=== PATIENT | female | born 1980 | race Caucasian/White ===

== ENCOUNTER 2016-12-11 03:18 | Emergency (ER) | payer BC, OTHER ==
[~2016-12-11 03:18] MED LIST changes: -PERCOCET 325 MG1 TA2 PO; -ZOFRAN ODT8 M1 PO
[2016-12-11] MEDS ORDERED: ZOFRAN ODT8 M1 PO (06:09)
[2016-12-11] MEDS ORDERED: PERCOCET 325 MG1 TA2 PO (06:09)
[2016-12-11 06:19] VITALS: BP 145/84
== END 2016-12-11 06:23 | disposition home or self-care (01) ==
LOC: ED 03:18
DX: R10.9 Unspecified abdominal pain (principal); R11.0 Nausea; Z87.442 Personal history of urinary calculi; N13.30 Unspecified hydronephrosis
CPT/HCPCS: J1885; J2405; J7030

== ENCOUNTER → 2016-12-11 | Outpatient (CLI) | payer BC, OTHER ==
[~2016-12-11] MED LIST: ALDACTONE50 MG PO; ALLERGY RELIEF10 M1 PO; EXCEDRIN1 TAB PO; IMPLANON68 MG ID; KETOROLAC TROME10 MG PO; KETOROLAC10 MG PO; NORCO 325 MG-51 TA1 PO; NORCO 325 MG-51 TAB PO; OXYCODONE HCL10 M1 PO; PERCOCET 325 MG1 TA2 PO; PROZAC20 MG PO; PROZAC40 MG PO; REGLAN10 M2 PO; ZOFRAN ODT8 M1 PO; ZOFRAN4 M2 PO
== END ==
LOC: RAD 13:53
DX: R10.9 Unspecified abdominal pain (principal); Z87.442 Personal history of urinary calculi; N13.30 Unspecified hydronephrosis

== ENCOUNTER 2019-10-02 16:34 | Emergency (ER) | payer BC ==
[~2019-10-02] VITALS: Ht 165.1 cm; Wt 107.7 kg
[~2019-10-02 16:34] MED LIST changes: +PERCOCET 325 MG1 TA2 PO; +ZOFRAN ODT8 M1 PO
[2019-10-02] MEDS ORDERED: PROZAC40 M1 PO (16:49)
[2019-10-02] MEDS ORDERED: LORAZEPAM0.5 M1 PO (16:49)
[2019-10-02] MEDS ORDERED: NEXIUM 40MG40 MG PO (16:50)
[2019-10-02 18:00] LABS: BASO # 0.1 (0.02-0.10); EOS # 0.2 (0.04-0.40); EOS % 1.7 % (1.0-5.0); HEMATOCRIT 39.9 % (37.0-47.0); HEMOGLOBIN 13.2 g/dL (12.5-16.0); LYMPH# 2.9 (1.50-4.00); MEAN CELL VOLUME 85 fl (78-100); MEAN CORPUSCULAR HEMOGLOBIN 28 pg (27-31); MEAN CORPUSCULAR HGB CONC 33 g/dL (33-37); MEAN PLATELET VOLUME 9.6 fl (7.4-10.4); NEU # 6.5 (1.40-6.50); PLATELET COUNT 466 K/mm3 (130-400); RED CELL DISTRIBUTION WIDTH 15.4 % (11.5-14.5); WHITE BLOOD COUNT 10.6 K/mm3 (4.8-10.8)
[2019-10-02 18:05] LABS: ALBUMIN 4.3 g/dL (3.5-5.0); POTASSIUM 3.9 mmol/L (3.5-5.1)
[2019-10-02 18:06] LABS: PH-URINE 7.5 (5.0 - 8.0); URINE APPEARANCE CLEAR; URINE BILIRUBIN NEGATIVE (NEGATIVE); URINE BLOOD NEGATIVE (NEGATIVE); URINE COLOR YELLOW; URINE GLUCOSE NEGATIVE (NEGATIVE); URINE KETONE NEGATIVE (NEGATIVE); URINE LEUKOCYTE ESTERASE TRACE (NEGATIVE); URINE NITRATE NEGATIVE (NEGATIVE); URINE PROTEIN(semi-quant) NEGATIVE (NEGATIVE); URINE UROBILINOGEN NORMAL (NORMAL); URINE WBC 0-1 /hpf (0-3)
[2019-10-02 18:08] LABS: TOTAL PROTEIN 7.7 g/dL (6.4-8.3)
[2019-10-02 18:09] LABS: TOTAL BILIRUBIN 0.2 mg/dL (0.2-1.2)
[2019-10-02] MEDS ORDERED: PERCOCET 325 MG1 TA2 PO (20:45)
[2019-10-02 21:01] VITALS: BP 151/87
== END 2019-10-02 21:01 | disposition home or self-care (01) ==
LOC: ED 16:34
PROVIDERS: Family Medicine
DX: N13.0 Hydronephrosis with ureteropelvic junction obstruction (principal); E66.01 Morbid (severe) obesity due to excess calories; Z68.39 Body mass index [BMI] 39.0-39.9, adult; Z98.51 Tubal ligation status
CPT/HCPCS: J1885; J3010; J7030

== ENCOUNTER 2020-06-01 22:47 | Emergency (ER) | payer SELFPAY ==
[~2020-06-01 22:47] MED LIST changes: +LORAZEPAM0.5 M1 PO; +NEXIUM 40MG40 MG PO; +PROZAC40 M1 PO
[2020-06-01 23:29] LABS: BASO # 0.1 (0.02-0.10); EOS # 0.4 (0.04-0.40); EOS % 3.2 % (1.0-5.0); HEMATOCRIT 38.8 % (37.0-47.0); HEMOGLOBIN 12.3 g/dL (12.5-16.0); LYMPH# 4.3 (1.50-4.00); MEAN CELL VOLUME 83 fl (78-100); MEAN CORPUSCULAR HEMOGLOBIN 26 pg (27-31); MEAN CORPUSCULAR HGB CONC 32 g/dL (33-37); MONO # 1.2 (0.20-0.80); NEU # 5.6 (1.40-6.50); PLATELET COUNT 381 K/mm3 (130-400); RED BLOOD COUNT 4.67 M/mm3 (4.10-5.30); RED CELL DISTRIBUTION WIDTH 16.2 % (11.5-14.5); WHITE BLOOD COUNT 11.6 K/mm3 (4.8-10.8)
[2020-06-01 23:38] LABS: ALBUMIN 4.1 g/dL (3.5-5.0); POTASSIUM 3.6 mmol/L (3.5-5.1)
[2020-06-01 23:39] LABS: CALCIUM 8.6 mg/dL (8.3-10.5)
[2020-06-01 23:41] LABS: TOTAL PROTEIN 6.9 g/dL (6.4-8.3)
[2020-06-01 23:42] LABS: TOTAL BILIRUBIN 0.2 mg/dL (0.2-1.2)
[2020-06-01 23:42] LABS: PH-URINE 7.5 (5.0 - 8.0); URINE APPEARANCE HAZY; URINE BILIRUBIN NEGATIVE (NEGATIVE); URINE BLOOD NEGATIVE (NEGATIVE); URINE COLOR YELLOW; URINE GLUCOSE NEGATIVE (NEGATIVE); URINE KETONE NEGATIVE (NEGATIVE); URINE LEUKOCYTE ESTERASE TRACE (NEGATIVE); URINE NITRATE NEGATIVE (NEGATIVE); URINE PROTEIN(semi-quant) NEGATIVE (NEGATIVE); URINE UROBILINOGEN NORMAL (NORMAL); URINE WBC 0-1 /hpf (0-3)
[2020-06-02 03:25] VITALS: BP 159/94
== END 2020-06-02 03:25 | disposition short-term general hospital (02) ==
LOC: ED 22:47
PROVIDERS: Nurse Practitioner Family
DX: R10.12 Left upper quadrant pain (principal); R10.32 Left lower quadrant pain; D64.9 Anemia, unspecified; N13.6 Pyonephrosis; N20.0 Calculus of kidney; R11.0 Nausea; Z79.1 Long term (current) use of non-steroidal anti-inflammatories (NSAID); Z88.6 Allergy status to analgesic agent; F41.9 Anxiety disorder, unspecified; F32.9 Major depressive disorder, single episode, unspecified
CPT/HCPCS: J1170; J1885; J2405; J3010; J7030

== ENCOUNTER 2020-08-09 20:37 | Emergency (ER) | payer SELFPAY ==
[~2020-08-09] VITALS: Ht 165.1 cm; Wt 113.6 kg
[2020-08-09 21:23] LABS: PH-URINE 7.5 (5.0 - 8.0); URINE APPEARANCE HAZY; URINE BILIRUBIN NEGATIVE (NEGATIVE); URINE BLOOD NEGATIVE (NEGATIVE); URINE COLOR YELLOW; URINE GLUCOSE NEGATIVE (NEGATIVE); URINE KETONE NEGATIVE (NEGATIVE); URINE LEUKOCYTE ESTERASE NEGATIVE (NEGATIVE); URINE NITRATE NEGATIVE (NEGATIVE); URINE PROTEIN(semi-quant) NEGATIVE (NEGATIVE); URINE UROBILINOGEN NORMAL (NORMAL); URINE WBC 0-1 /hpf (0-3)
[2020-08-09 21:53] LABS: BASO # 0.1 (0.02-0.10); EOS # 0.3 (0.04-0.40); EOS % 2.8 % (1.0-5.0); HEMATOCRIT 35.5 % (37.0-47.0); HEMOGLOBIN 11.3 g/dL (12.5-16.0); LYMPH# 3.7 (1.50-4.00); MEAN CELL VOLUME 82 fl (78-100); MEAN CORPUSCULAR HEMOGLOBIN 26 pg (27-31); MEAN CORPUSCULAR HGB CONC 32 g/dL (33-37); MEAN PLATELET VOLUME 9.3 fl (7.4-10.4); MONO # 1.1 (0.20-0.80); NEU # 5.4 (1.40-6.50); PLATELET COUNT 385 K/mm3 (130-400); RED BLOOD COUNT 4.31 M/mm3 (4.10-5.30); RED CELL DISTRIBUTION WIDTH 15.7 % (11.5-14.5); WHITE BLOOD COUNT 10.7 K/mm3 (4.8-10.8)
[2020-08-09 22:04] LABS: ALBUMIN 3.9 g/dL (3.5-5.0); POTASSIUM 3.8 mmol/L (3.5-5.1)
[2020-08-09 22:06] LABS: CALCIUM 8.9 mg/dL (8.3-10.5)
[2020-08-09 22:07] LABS: TOTAL PROTEIN 6.7 g/dL (6.4-8.3)
[2020-08-09 22:09] LABS: TOTAL BILIRUBIN 0.2 mg/dL (0.2-1.2)
[2020-08-10 00:49] VITALS: BP 156/96
== END 2020-08-10 00:49 | disposition home or self-care (01) ==
LOC: ED 20:37
PROVIDERS: Physician Assistant
DX: N13.5 Crossing vessel and stricture of ureter without hydronephrosis (principal); F41.9 Anxiety disorder, unspecified; F17.290 Nicotine dependence, other tobacco product, uncomplicated; Z32.02 Encounter for pregnancy test, result negative; Z98.84 Bariatric surgery status; Z88.0 Allergy status to penicillin; Z88.6 Allergy status to analgesic agent
CPT/HCPCS: J1170; J1885; J3010; Q9967

== ENCOUNTER 2020-08-26 19:58 | Emergency (ER) | payer SELFPAY ==
[~2020-08-26] VITALS: Ht 165.1 cm; Wt 114.5 kg
[2020-08-26] MEDS ORDERED: NORCO 325 MG-51 TA1 PO (20:11)
[2020-08-26 21:04] LABS: BASO # 0.1 (0.02-0.10); EOS # 0.4 (0.04-0.40); EOS % 3.4 % (1.0-5.0); HEMATOCRIT 37.5 % (37.0-47.0); HEMOGLOBIN 11.8 g/dL (12.5-16.0); LYMPH# 3.1 (1.50-4.00); MEAN CELL VOLUME 83 fl (78-100); MEAN CORPUSCULAR HEMOGLOBIN 26 pg (27-31); MEAN CORPUSCULAR HGB CONC 32 g/dL (33-37); MEAN PLATELET VOLUME 9.3 fl (7.4-10.4); NEU # 7.2 (1.40-6.50); PLATELET COUNT 411 K/mm3 (130-400); RED BLOOD COUNT 4.54 M/mm3 (4.10-5.30); RED CELL DISTRIBUTION WIDTH 15.9 % (11.5-14.5); WHITE BLOOD COUNT 11.8 K/mm3 (4.8-10.8)
[2020-08-26 21:12] LABS: POTASSIUM 3.8 mmol/L (3.5-5.1)
[2020-08-26 21:13] LABS: CALCIUM 8.9 mg/dL (8.3-10.5)
[2020-08-26 21:15] LABS: URINE APPEARANCE CLEAR; URINE BILIRUBIN NEGATIVE (NEGATIVE); URINE COLOR YELLOW; URINE GLUCOSE NEGATIVE (NEGATIVE); URINE KETONE NEGATIVE (NEGATIVE); URINE NITRATE NEGATIVE (NEGATIVE); URINE PROTEIN(semi-quant) 1+ mg/dL (NEGATIVE); URINE UROBILINOGEN NORMAL (NORMAL)
[2020-08-26 21:16] LABS: URINE BLOOD TRACE (NEGATIVE); URINE LEUKOCYTE ESTERASE TRACE (NEGATIVE); URINE MUCUS PRESENT (NOT PRESENT)
[2020-08-26 21:16] LABS: TOTAL BILIRUBIN 0.3 mg/dL (0.2-1.2)
[2020-08-26] MEDS ORDERED: NEXIUM20 MG PO (21:27)
[2020-08-26 22:01] VITALS: BP 164/96
== END 2020-08-26 22:01 | disposition home or self-care (01) ==
LOC: ED 19:58
PROVIDERS: Family Medicine
DX: R10.9 Unspecified abdominal pain (principal); F41.9 Anxiety disorder, unspecified; F32.9 Major depressive disorder, single episode, unspecified; F17.290 Nicotine dependence, other tobacco product, uncomplicated; Z98.84 Bariatric surgery status
CPT/HCPCS: J2060; J3010

== ENCOUNTER 2021-11-17 12:52 | Emergency (ER) | payer OTHER ==
[~2021-11-17] VITALS: Ht 165.1 cm; Wt 115.5 kg
[~2021-11-17 12:52] MED LIST changes: +NEXIUM20 MG PO
[2021-11-17 13:53] VITALS: BP 160/100
== END 2021-11-17 14:04 | disposition home or self-care (01) ==
LOC: ED 12:52
DX: S61.412A Laceration without foreign body of left hand, initial encounter (principal); E66.9 Obesity, unspecified; Z23 Encounter for immunization; Z68.41 Body mass index [BMI] 40.0-44.9, adult; W26.9XXA Contact with unspecified sharp object(s), initial encounter
CPT/HCPCS: 90715

== ENCOUNTER 2022-04-10 20:55 | Emergency (ER) | payer SELFPAY ==
[2022-04-10] MEDS ORDERED: ZYRTEC ALLERGY10 MG PO (21:09)
[2022-04-10 22:04] LABS: BASO # 0.09 K/mm3 (0.02-0.10); EOS # 0.31 K/mm3 (0.04-0.40); EOS % 2.5 % (1.0-5.0); HEMATOCRIT 33.6 % (37.0-47.0); HEMOGLOBIN 10.1 g/dL (12.5-16.0); LYMPH# 2.91 K/mm3 (1.50-4.00); MEAN CELL VOLUME 77 fl (78-100); MEAN CORPUSCULAR HEMOGLOBIN 23 pg (27-31); MEAN CORPUSCULAR HGB CONC 30 g/dL (33-37); MEAN PLATELET VOLUME 9.4 fl (7.4-10.4); MONO # 1.18 K/mm3 (0.20-0.80); NEU # 8.01 K/mm3 (1.40-6.50); PLATELET COUNT 435 K/mm3 (130-400); RED BLOOD COUNT 4.39 M/mm3 (4.10-5.30); WHITE BLOOD COUNT 12.5 K/mm3 (4.8-10.8)
[2022-04-10 22:08] LABS: ALBUMIN 4.1 g/dL (3.5-5.0)
[2022-04-10 22:09] LABS: POTASSIUM 3.8 mmol/L (3.5-5.1)
[2022-04-10 22:10] LABS: CALCIUM 9.1 mg/dL (8.3-10.5)
[2022-04-10 22:13] LABS: TOTAL BILIRUBIN 0.3 mg/dL (0.2-1.2)
[2022-04-10 22:16] LABS: URINE APPEARANCE CLEAR; URINE BILIRUBIN NEGATIVE (NEGATIVE); URINE BLOOD NEGATIVE (NEGATIVE); URINE COLOR LIGHT YELLOW; URINE GLUCOSE NEGATIVE (NEGATIVE); URINE KETONE NEGATIVE (NEGATIVE); URINE LEUKOCYTE ESTERASE NEGATIVE (NEGATIVE); URINE NITRATE NEGATIVE (NEGATIVE); URINE PROTEIN(semi-quant) NEGATIVE (NEGATIVE); URINE UROBILINOGEN NORMAL (NORMAL); URINE WBC 0-1 /hpf (0-3)
[2022-04-10] MEDS ORDERED: NORCO 325 MG-51 TA1 PO (23:35)
[2022-04-10] MEDS ORDERED: CIPRO500 M1 PO (23:35)
[2022-04-10] MEDS ORDERED: METRONIDAZOLE500 M1 PO (23:35)
[2022-04-10 23:46] VITALS: BP 152/78
== END 2022-04-10 23:47 | disposition home or self-care (01) ==
LOC: ED 20:55
PROVIDERS: Physician Assistant
DX: K57.32 Diverticulitis of large intestine without perforation or abscess without bleeding (principal); D25.9 Leiomyoma of uterus, unspecified; F17.290 Nicotine dependence, other tobacco product, uncomplicated; Z87.442 Personal history of urinary calculi; Z88.0 Allergy status to penicillin; Z28.310 Unvaccinated for COVID-19
CPT/HCPCS: J1885; J3010; Q9967

== ENCOUNTER 2022-05-17 11:05 | Emergency (ER) | payer SELFPAY ==
[~2022-05-17 11:05] MED LIST changes: +CIPRO500 M1 PO; +METRONIDAZOLE500 M1 PO; +ZYRTEC ALLERGY10 MG PO
[2022-05-17] MEDS ORDERED: NORCO 10-325 T1 EACH PO (11:31)
[2022-05-17 12:02] VITALS: BP 179/90
== END 2022-05-17 12:01 | disposition home or self-care (01) ==
LOC: ED 11:05
DX: K02.9 Dental caries, unspecified (principal); Z88.5 Allergy status to narcotic agent; Z28.310 Unvaccinated for COVID-19
CPT/HCPCS: J1885

== ENCOUNTER 2023-12-07 17:07 | Outpatient (RCR) | payer SELFPAY ==
[2023-11-26 16:05] VITALS: BP 144/89
[2023-11-30 16:36] VITALS: BP 145/94
--- NOTE | 2023-11-30 16:38 | NUR ---
Jaylyn MORRISON assessed serous draining from wound sight on inner arm, PA stated normal drainage and to report any worsening of symptoms, covered with steri stip
[~2023-12-07] VITALS: Ht 167.6 cm; Wt 120.0 kg
[~2023-12-07 17:07] MED LIST changes: +AMOXICILLIN AND1 TA2 PO; +CLEOCIN HCL300 MG PO; +NORCO 10-325 T1 EACH PO
[2023-12-07 17:17] VITALS: BP 155/93
== END 2023-12-09 10:44 | disposition home or self-care (01) ==
LOC: AMSURD 17:07
DX: S41.159A Open bite of unspecified upper arm, initial encounter (principal); W54.0XXA Bitten by dog, initial encounter

== ENCOUNTER 2024-02-06 22:37 | Emergency (ER) | payer SELFPAY ==
[~2024-02-06 22:37] MED LIST changes: +hydrALAZINE 20 MG/ML 1 ML VIAL IV ONE
[2024-03-11 16:21] LABS: URINE WBC 0 /hpf (0-3)
[2024-03-12 05:17] LABS: ALBUMIN 4.3 g/dL (3.5-5.0); ALT/SGPT 18 U/L (0-55); AST-SGOT 23 U/L (5-34); CALCIUM 9.2 mg/dL (8.3-10.5); CARBON DIOXIDE 22 mmol/L (22-29); GLUCOSE 93 mg/dL (65-105); SODIUM 136 mmol/L (136-145); TOTAL BILIRUBIN 0.3 mg/dL (0.2-1.2); TOTAL PROTEIN 7.3 g/dL (6.4-8.3); TROPONIN-I < 0.030 ng/mL (0.00-0.033)
[2024-03-12 05:18] LABS: URINE APPEARANCE CLEAR (CLEAR); URINE BILIRUBIN NEGATIVE (NEGATIVE); URINE BLOOD NEGATIVE (NEGATIVE); URINE COLOR YELLOW (YELLOW); URINE GLUCOSE NEGATIVE (NEGATIVE); URINE KETONE NEGATIVE (NEGATIVE); URINE LEUKOCYTE ESTERASE NEGATIVE (NEGATIVE); URINE NITRATE NEGATIVE (NEGATIVE); URINE PROTEIN(semi-quant) NEGATIVE (NEGATIVE)
[2024-03-12 05:24] LABS: BASO # 0.07 K/mm3 (0.02-0.10); EOS # 0.28 K/mm3 (0.04-0.40); EOS % 2.7 % (1.0-5.0); HEMATOCRIT 34.8 % (37.0-47.0); LYMPH# 3.43 K/mm3 (1.50-4.00); MEAN CELL VOLUME 77 fl (78-100); MEAN CORPUSCULAR HEMOGLOBIN 24 pg (27-31); MEAN CORPUSCULAR HGB CONC 32 g/dL (33-37); MONO # 0.84 K/mm3 (0.20-0.80); NEU # 5.73 K/mm3 (1.40-6.50); PLATELET COUNT 466 K/mm3 (130-400); RED CELL DISTRIBUTION WIDTH 15.6 % (11.5-14.5); WHITE BLOOD COUNT 10.4 K/mm3 (4.8-10.8)
== END 2024-02-07 00:31 | disposition home or self-care (01) ==
LOC: ED 22:37
PROVIDERS: Family Medicine
DX: I10 Essential (primary) hypertension (principal); T50.905A Adverse effect of unspecified drugs, medicaments and biological substances, initial encounter; E87.6 Hypokalemia
CPT/HCPCS: J0360

== ENCOUNTER 2024-03-28 03:30 | Emergency (ER) | payer SELFPAY ==
[~2024-03-28] VITALS: Ht 165.1 cm; Wt 108.2 kg
[~2024-03-28 03:30] MED LIST changes: -hydrALAZINE 20 MG/ML 1 ML VIAL IV ONE
[2024-03-28] MEDS ORDERED: ATENOLOL25 MG (03:50)
[2024-03-28] MEDS ORDERED: HCTZ 25MG25 MG PO (03:50)
[2024-03-28] MEDS ORDERED: DESYREL 100MG100 MG PO (03:51)
[2024-03-28] MEDS ORDERED: DULOXETINE60 MG PO (03:51)
[2024-03-28] MEDS ORDERED: POTASSIUM CHLO20 ME4 PO (03:51)
[2024-03-28] MEDS ORDERED: LOSARTAN POTASS25 MG PO (03:51)
[2024-03-28 04:06] LABS: URINE APPEARANCE CLEAR (CLEAR); URINE COLOR YELLOW (YELLOW)
[2024-03-28 04:08] LABS: URINE BILIRUBIN NEGATIVE (NEGATIVE); URINE BLOOD NEGATIVE (NEGATIVE); URINE GLUCOSE NEGATIVE (NEGATIVE); URINE KETONE NEGATIVE (NEGATIVE); URINE LEUKOCYTE ESTERASE NEGATIVE (NEGATIVE); URINE NITRATE NEGATIVE (NEGATIVE); URINE PROTEIN(semi-quant) NEGATIVE (NEGATIVE); URINE WBC 0-1 /hpf (0-3)
[2024-03-28 04:48] LABS: BASO # 0.11 K/mm3 (0.02-0.10); EOS # 0.34 K/mm3 (0.04-0.40); HEMATOCRIT 32.2 % (37.0-47.0); LYMPH# 3.95 K/mm3 (1.50-4.00); MEAN CELL VOLUME 79 fl (78-100); MEAN CORPUSCULAR HEMOGLOBIN 24 pg (27-31); MEAN CORPUSCULAR HGB CONC 31 g/dL (33-37); MEAN PLATELET VOLUME 8.7 fl (7.4-10.4); MONO # 0.99 K/mm3 (0.20-0.80); NEU # 5.78 K/mm3 (1.40-6.50); PLATELET COUNT 385 K/mm3 (130-400); RED CELL DISTRIBUTION WIDTH 16.1 % (11.5-14.5); WHITE BLOOD COUNT 11.2 K/mm3 (4.8-10.8)
[2024-03-28 05:08] LABS: ALBUMIN 3.8 g/dL (3.5-5.0)
[2024-03-28 05:09] LABS: CALCIUM 8.8 mg/dL (8.3-10.5)
[2024-03-28 05:12] LABS: TOTAL BILIRUBIN 0.3 mg/dL (0.2-1.2); TOTAL PROTEIN 6.3 g/dL (6.4-8.3)
[2024-03-28] MEDS ORDERED: CIPRO250 M1 PO (05:32)
[2024-03-28 05:58] VITALS: BP 116/72
[2024-03-28] MEDS ORDERED: Ciprofloxacin 250 MG TAB PO ONE (06:00)
== END 2024-03-28 06:00 | disposition home or self-care (01) ==
LOC: ED 03:30
PROVIDERS: Family Medicine
DX: R53.81 Other malaise (principal); R30.0 Dysuria; E87.6 Hypokalemia

== ENCOUNTER → 2024-10-20 | Outpatient (CLI) | payer OTHER ==
[~2024-10-20] MED LIST changes: +ATENOLOL25 MG; +CIPRO250 M1 PO; +DESYREL 100MG100 MG PO; +DULOXETINE60 MG PO; +HCTZ 25MG25 MG PO; +LOSARTAN POTASS25 MG PO; +POTASSIUM CHLO20 ME4 PO
[2024-10-20 09:35] LABS: BASO # 0.11 K/mm3 (0.02-0.10); EOS % 5.3 % (1.0-5.0); HEMATOCRIT 33.2 % (37.0-47.0); HEMOGLOBIN 9.8 g/dL (12.5-16.0); LYMPH# 2.26 K/mm3 (1.50-4.00); MEAN CELL VOLUME 75 fl (78-100); MEAN CORPUSCULAR HEMOGLOBIN 22 pg (27-31); MEAN CORPUSCULAR HGB CONC 30 g/dL (33-37); MEAN PLATELET VOLUME 9.2 fl (7.4-10.4); MONO # 0.68 K/mm3 (0.20-0.80); PLATELET COUNT 510 K/mm3 (130-400); RED BLOOD COUNT 4.44 M/mm3 (4.10-5.30); RED CELL DISTRIBUTION WIDTH 16.9 % (11.5-14.5); WHITE BLOOD COUNT 7.6 K/mm3 (4.8-10.8)
[2024-10-20 09:42] LABS: ALBUMIN 4.1 g/dL (3.5-5.0)
[2024-10-20 09:43] LABS: CALCIUM 8.8 mg/dL (8.3-10.5)
[2024-10-20 09:44] LABS: TOTAL PROTEIN 7.6 g/dL (6.4-8.3)
[2024-10-20 09:46] LABS: TOTAL BILIRUBIN 0.3 mg/dL (0.2-1.2)
[2024-10-21 00:40] LABS: FOLLICLE STIMULATING HORMONE 14.8 mIU/mL (()); LUTENIZING HORMONE 9.8 mIU/mL (())
== END ==
LOC: LAB 09:16
PROVIDERS: Physician Assistant
DX: Z13.1 Encounter for screening for diabetes mellitus (principal); K90.9 Intestinal malabsorption, unspecified; R60.9 Edema, unspecified; R00.2 Palpitations; N91.2 Amenorrhea, unspecified; E78.5 Hyperlipidemia, unspecified; D64.9 Anemia, unspecified

== ENCOUNTER 2024-11-02 12:30 | Emergency (ER) | payer OTHER ==
[~2024-11-02] VITALS: Ht 165.1 cm; Wt 124.7 kg
[2024-11-02] MEDS ORDERED: AMOXICILLIN AND1 TA2 PO (12:49)
[2024-11-02] MEDS ORDERED: HYDROXYZINE HCL25 M1 PO (12:50)
[2024-11-02] MEDS ORDERED: FUROSEMIDE20 MG PO (12:50)
[2024-11-02] MEDS ORDERED: PREDNISONE20 M1 PO (12:50)
[2024-11-02] MEDS ORDERED: Albuterol/Ipratropium 3 MG-0.5 MG/3 ML Neb Soln IH ONE (13:00)
[2024-11-02] MEDS ORDERED: methylPREDNISolone Sod Succ 125 MG/2 ML VIAL IV ONE (13:00)
[2024-11-02 13:01] LABS: BASO # 0.02 K/mm3 (0.02-0.10); EOS # 0.07 K/mm3 (0.04-0.40); EOS % 0.8 % (1.0-5.0); HEMATOCRIT 28.9 % (37.0-47.0); HEMOGLOBIN 8.6 g/dL (12.5-16.0); LYMPH# 0.92 K/mm3 (1.50-4.00); MEAN CELL VOLUME 74 fl (78-100); MEAN CORPUSCULAR HEMOGLOBIN 22 pg (27-31); MEAN CORPUSCULAR HGB CONC 30 g/dL (33-37); MEAN PLATELET VOLUME 9.1 fl (7.4-10.4); MONO # 0.21 K/mm3 (0.20-0.80); NEU # 7.51 K/mm3 (1.40-6.50); PLATELET COUNT 452 K/mm3 (130-400); RED BLOOD COUNT 3.89 M/mm3 (4.10-5.30); RED CELL DISTRIBUTION WIDTH 17.2 % (11.5-14.5); WHITE BLOOD COUNT 8.8 K/mm3 (4.8-10.8)
[2024-11-02 13:05] LABS: SODIUM 138 mmol/L (136-145)
[2024-11-02 13:06] LABS: ALBUMIN 4.1 g/dL (3.5-5.0); CALCIUM 8.7 mg/dL (8.3-10.5)
[2024-11-02 13:08] LABS: GLUCOSE 138 mg/dL (65-105); TOTAL PROTEIN 7.3 g/dL (6.4-8.3)
[2024-11-02 13:09] LABS: CARBON DIOXIDE 20 mmol/L (22-29)
[2024-11-02 13:10] LABS: TOTAL BILIRUBIN 0.2 mg/dL (0.2-1.2)
[2024-11-02 13:13] LABS: AST-SGOT 39 U/L (5-34)
[2024-11-02 13:16] LABS: ALT/SGPT 64 U/L (0-55)
[2024-11-02 13:29] LABS: TROPONIN-I < 0.030 ng/mL (0.00-0.033)
[2024-11-02 13:32] LABS: D-DIMER 0.53 mg/L FEU (0.15-0.50)
[2024-11-02] MEDS ORDERED: Iohexol 350 - 100 ML VIAL IV ONE (13:50)
[2024-11-02] MEDS ORDERED: NS 100 ML IV SCH (13:52)
[2024-11-02 16:20] VITALS: BP 147/88
== END 2024-11-02 13:15 | disposition home or self-care (01) ==
LOC: ED 12:30
PROVIDERS: Physician Assistant
DX: D50.9 Iron deficiency anemia, unspecified (principal); R06.02 Shortness of breath; Z87.09 Personal history of other diseases of the respiratory system; Z79.899 Other long term (current) drug therapy
CPT/HCPCS: J2919; Q9967

== ENCOUNTER 2024-11-06 16:05 | Emergency (ER) | payer OTHER ==
[~2024-11-06] VITALS: Ht 162.6 cm; Wt 114.6 kg
[~2024-11-06 16:05] MED LIST changes: +FUROSEMIDE20 MG PO; +HYDROXYZINE HCL25 M1 PO; +PREDNISONE20 M1 PO
[2024-11-06 19:07] LABS: HEMATOCRIT 31.5 % (37.0-47.0); HEMOGLOBIN 9.6 g/dL (12.5-16.0)
[2024-11-06 19:12] LABS: CALCIUM 8.9 mg/dL (8.3-10.5)
[2024-11-06 20:21] VITALS: BP 130/68
== END 2024-11-06 20:21 | disposition home or self-care (01) ==
LOC: ED 16:05
PROVIDERS: Family Medicine
DX: D50.9 Iron deficiency anemia, unspecified (principal); R00.2 Palpitations; R01.1 Cardiac murmur, unspecified